=== PATIENT | male | born 1965 | race Caucasian/White ===

== ENCOUNTER 2017-04-12 16:57 | Inpatient (IN) | payer OTHER, SELFPAY ==
[2017-04-12] VITALS (9 sets, daily range): BP systolic 114–140; BP diastolic 80–93; PULSE 82–109; RESP 16–18; TEMP 36.8–37; O2SAT 94–97; BMI 27.9; BMI 27.2; BMI 27.3
--- NOTE | 2017-04-12 17:21 | CT_ITS ---
STUDY: CTA CHEST REASON FOR EXAM: Male, 51 years old. Shortness of breath. RADIATION DOSAGE (If Supplied By Facility): CTDIvol = ( 13.20 ) mGy, DLP = ( 594.82 ) mGycm TECHNIQUE: The examination was performed with the intravenous administration of 100ML ml of Isovue 370 contrast material. Post-processing of the angiographic images was performed, with multiplanar reformation and 3D reconstruction. Individualized dose optimization techniques were used for this CT. COMPARISON: None. FINDINGS: There are filling defects noted within segmental pulmonary arteries throughout the right lung consistent with pulmonary emboli. There is a embolus noted within a segmental pulmonary artery extending into the left upper lobe as well. Normal thoracic aorta and visualized great vessels. There is no demonstrated aortic dissection. Normal heart and pericardium. Normal mediastinum. Normal hilar regions. Normal visualized trachea and bronchi. There is minimal dependent consolidation within the right lower lobe. There is associated atelectasis within the lower lobes. Normal chest wall structures. Normal osseous structures. Normal visualized upper abdomen. CT/CTA Chest W/WO Contrast IMPRESSION: Bilateral pulmonary emboli, more pronounced on the right. Dependent consolidation within the right lower lobe associated with minimal atelectasis within the lower lobes. Electronically Signed: Sandy Styles MD at 19:09 EST Tel , Service support ,
--- NOTE | 2017-04-12 17:32 | ED.DCSUM_ITS ---
- ER Visit Summary Date of Service: 04/12/17 Chief Complaint: Abnormal CT scan History of Present Illness: The patient is a 51 M who presents today for follow- up from an abnormal CT scan yesterday. 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 He had a follow-up CAT scan yesterday to check the progression of this disease. The upper slices of the film question the PE with a wedge infarct. He was directed to come here today. Patient denies any symptoms including chest pain, shortness of breath or abdominal pain. Physical Examination: Vital signs reviewed. HEENT exam unremarkable. Heart is regular rate and rhythm without murmurs. Lungs are clear to auscultation. Abdomen is soft and nontender. Extremities reveal no edema. Skin exam normal. Neurologic exam normal. Test Results: Laboratory studies normal except for glucose of 24. CTA of the chest reveals bilateral PEs Emergency Department Course and Treatment: Patient remained comfortable without symptoms in the ER he was started on a heparin drip Treatment Plan: I discussed case with Dr. Medrano who recommended admission and heparin drip. Additional history was obtained from the patient and he states he had a DVT back in January but he was only placed on a short course of Xarelto that he finished in February. Patient was placed on a heparin drip. This will be stopped to obtain a hypercoagulability panel. Discussed the case with hospitalist for admission Disposition: Admit Impression: Bilateral pulmonary embolism This note was generated with [employer] dictation software. It may contain incorrect words, spelling, and punctuation that were not noted in review of the chart prior to signing ED Disposition - Plan for ED Patient: Chief Complaint: General Illness
[2017-04-12 17:35] LABS: Differential Indicated MANUAL DIFF; Hematocrit 42.2 % (40-54); Hemoglobin 14.4 g/dl (13.0-16.5); Mean Corp Hgb Conc 34.1 g/gl (32-36); Mean Corpuscular Volume 84.9 fL (80-94); Mean Platelet Vol. 9.5 fl (6.2-12.0); POSITIVE COUNT YES; POSITIVE DIFFERENTIAL YES; POSITIVE MORPHOLOGY YES; Platelet Count 172 K/mm3 (150-450); RBC Distribution Width CV 15.2 % (11.6-14.6); RBC Distribution Width SD 46.6 fl (35.1-43.9); Red Blood Count 4.97 M/mm3 (4.6-6.2); White Blood Count 8.1 K/mm3 (4.4-11.0)
[2017-04-12 17:45] LABS: Anion Gap 8 (5-15); BUN 12 mg/dL (7-18); BUN/Creat Ratio 12.6 RATIO (10-20); Calcium,Total 8.6 mg/dL (8.5-10.1); Chloride 101 mmol/L (98-107); Creatinine, Serum 0.95 mg/dL (0.70-1.30); EST Glomerular Filtration Rate 88 mL/min (>60); Est Glom Filt Rate - Afr Amer 106 mL/min (>60); Estimated Creatinine Clearance 92.85 ml/min; Glucose 124 mg/dL (70-110); Potassium 3.8 mmol/L (3.5-5.1); Sodium Level 139 mmol/L (136-145)
[2017-04-12 18:04] LABS: Lymphocyte 4 % (19-41); Monocyte 9 % (0-10); Neutrophil-Band 1 % (0-5); Neutrophil-Segmented 86 % (47-70); Total Cells Counted 100 (MANUAL DIFF)
[2017-04-12 18:05] LABS: Reactive Lymphocyte RARE
[2017-04-12 18:06] LABS: Absolute Lymphocyte Count 0.32 X10^3/ul (0.83-4.51)
[2017-04-12 20:33] LABS: Partial Thromboplast Time 24.7 Seconds (24.1-36.2)
[2017-04-12] MEDS: Heparin Injection 5,000 UNITS/ML Syringe 6000 UNITS IV (20:39)
[2017-04-12] MEDS: HEPARIN/D5w 25,000 UNITS 25,000 UNITS/250 ML IV.SOLN. 12 UNITS IV ×2 (20:40→23:22)
[2017-04-12 20:44] LABS: Prothrombin Time (Protime)PT. 12.6 SECONDS (11.7-14.9)
--- NOTE | 2017-04-12 20:52 | HP.PCM_ITS ---
Problem List (1) Sclerosing mesenteritis Status: Chronic (2) HTN (hypertension) Status: Chronic Qualifiers: Hypertension type: essential hypertension Qualified Code(s): I10 - Essential (primary) hypertension (3) HLD (hyperlipidemia) Status: Chronic Qualifiers: Hyperlipidemia type: unspecified Qualified Code(s): E78.5 - Hyperlipidemia , unspecified (4) Overweight (BMI 25.0-29.9) Status: Chronic (5) GERD (gastroesophageal reflux disease) Status: Chronic Qualifiers: Esophagitis presence: esophagitis presence not specified Qualified Code(s) : K21.9 - Gastro-esophageal reflux disease without esophagitis (6) Bilateral pulmonary embolism Status: Acute History of Present Illness Date of Admission: 04/12/17 Chief Complaint: Incidental PE noted on current imaging for sclerosing mesenteritis, referred to ED per Dr. Dotson. The patient is a 51 y/o M w/ PMHx: Overweight, HTN, HLD, GERD, Sclerosing Mesenteritis s/p Mesenteric Bx per his reported, initially treated w/ Tamoxifen and Prednisone but following Tamoxifen initiation had provoked PE thus discontinued who presents to the [facility] ED on 04/12/17 with history of ongoing evaluation per Dr. Dotson for his Sclerosing Mesenteritis w/ recent CT Abd the day prior with incidentally noted concern for PE with following referral to the ED per Dr. Dotson for CTPA. The patient denied any recent prolonged travel, family or personal hypercoaguable history or recent interventions. Patient stopped xarelto regimen for his prior PE in 02/2017 of note. In the ED work-up included AF, HR 80-90s, BP 136/88, RR 18, 94% on RA, CBC w/ WBC 8.1, Hgb 14.4, Plts 172 without marked shift, normal coags, BMP unremarkable aside glucose 124 , CTPA w/ bilateral pulmonary emboli more pronounced on the right with dependent consolidation within the right lower lobe associated with minimal atelectasis within the lower lobes. In the ED patient initiated on heparin drip which was held upon admission per discussion with ED Physician to obtain hypercoaguable panel prior to restart. Past Medical History Past Medical History (Chronic Problems): Chronic Problems Sclerosing mesenteritis (Chronic) HTN (hypertension) (Chronic) HLD (hyperlipidemia) (Chronic) Overweight (BMI 25.0-29.9) (Chronic) GERD (gastroesophageal reflux disease) (Chronic) Allergies amoxicillin Allergy (Verified 08/30/16 16:51) Unknown tamoxifen Adverse Reaction (Verified 04/12/17 17:00) Other Home Medications: Ambulatory Orders Medication Instructions Recorded Ramipril [Altace] 10 mg PO DAILY 05/30/15 Simvastatin [Zocor] 20 mg PO QHS 05/30/15 PredniSONE [Prednisone] 20 mg PO DAILY@0800 08/30/16 Omeprazole [Prilosec] 20 mg PO DAILY 04/12/17 Surgical History: - - Cholecystectomy, Bx mesentery per patient report. Psychiatric History: No pertinent psych hx Lives: Spouse/ Significant Other Smoking Status: Never smoker Tobacco Use: Non-smoker Alcohol: None Drugs: None - *Family History Maternal History Items: Heart Disease, Hypertension, - - Denied family clotting disorder history. Paternal History Items: Heart Disease, Hypertension, - - Denied family clotting disorder history. Review of Systems Constitutional: Denies: Chills, Fever, Weight Change HEENT: Denies: Head Aches, Sinus Congestion, Sinus Drainage Cardiovascular: Denies: Chest Pain, Palpitations Respiratory: Denies: Cough, Shortness of breath at rest, Sputum production Gastrointestinal: Reports: Abdominal Pain, Dyspepsia, Nausea. Denies: Vomiting Genitourinary: Denies: Dysuria Musculoskeletal: Denies: Joint Pain, Joint Tenderness Skin: Denies: Rash, Wounds Neurological: Denies: Numbness, Tingling, Focal weakness Psychiatric: Denies: Anxiety, Depression, Homicidal Ideations, Suicidal Ideations Hematologic/ Lymphatic: Denies: Easy Bruising, Easy Bleeding VTE Information - Inpt Only VTE Present on Admission: No VTE Mechan Device Prophylaxis: SCD's VTE Pharm Prophylaxis ordered?: Yes Patient Problems: Active and Suspected Problems Bilateral pulmonary embolism (Acute) Subjective: Seated upright in the ED bed, NAD. Objective: Physical Examination: General: awake, alert, oriented x 3 and cooperative, seated upright in the ED bed in no apparent distress. Skin: normal color, turgor, no icterus, cyanosis. HEENT: AT/NC, EOMI, PERRLA, MMM, no carotid bruits or JVD noted. Lungs: CTA bilaterally, moderate effort, mild decrease BL bases, no rales, ronchi or wheezing. Heart: Regular rate and rhythm; no gallop, rub audible. Abdomen: soft, overweight, NTTP, ND, normal BS, no HSM. Extremities: no cyanosis, clubbing, or edema. Neurological: patient awake, alert, oriented x 3; cognitive function intact; pupils equally reactive to light and accomodation; cranial nerves II-XII grossly normal, moving all 4 extremities, no focal deficits, strength preserved. Psychiatric: affect appears normal, no acute evidence of depressive or anxiety feelings. - Physical Exam Vital Signs Temp Pulse Resp BP Pulse Ox 98.3 F 95 16 114/88 H 97 04/12/17 16:58 04/12/17 19:36 04/12/17 19:36 04/12/17 19:36 04/12/17 19:36 Oxygen Delivery Method Room Air Weight: 194 lb 10.691 oz Body Mass Index (BMI) 27.9 Laboratory Tests Past 24 Hrs 04/12/17 04/12/17 04/12/17 17:05 17:05 17:25 WBC 8.1 RBC 4.97 Hgb 14.4 Hct 42.2 MCV 84.9 MCH 29.0 MCHC 34.1 RDW 15.2 H RDW Differential 46.6 H Plt Count 172 MPV 9.5 Neut % (Auto) Not Reportable Absolute Neuts (auto) 7.0 Absolute Lymphs (auto) 0.32 L Total Counted 100 Neutrophils % (Manual) 86 H Band Neutrophils % 1 Lymphocytes % (Manual) 4 L Monocytes % (Manual) 9 Diff Path Review May foll Reactive Lymphocytes RARE PT 12.6 INR 1.0 APTT 24.7 Sodium Potassium Chloride Carbon Dioxide Anion Gap BUN Creatinine Estim Creat Clear Calc Est GFR (MDRD) Af Amer Est GFR (MDRD) Non-Af BUN/Creatinine Ratio Glucose Calcium 04/12/17 17:25 WBC RBC Hgb Hct MCV MCH MCHC RDW RDW Differential Plt Count MPV Neut % (Auto) Absolute Neuts (auto) Absolute Lymphs (auto) Total Counted Neutrophils % (Manual) Band Neutrophils % Lymphocytes % (Manual) Monocytes % (Manual) Diff Path Review Reactive Lymphocytes PT INR APTT Sodium 139 Potassium 3.8 Chloride 101 Carbon Dioxide 30.0 Anion Gap 8 BUN 12 Creatinine 0.95 Estim Creat Clear Calc 92.85 Est GFR (MDRD) Af Amer 106 Est GFR (MDRD) Non-Af 88 BUN/Creatinine Ratio 12.6 Glucose 124 H Calcium 8.6 Assessment/Plan Active and Suspected Problems Bilateral pulmonary embolism (Acute) The patient is a 51 y/o M w/ PMHx: Overweight, HTN, HLD, GERD, Sclerosing Mesenteritis s/p Mesenteric Bx per his reported, initially treated w/ Tamoxifen and Prednisone but following Tamoxifen initiation had provoked PE thus discontinued who presents to the [facility] ED on 04/12/17 with history of ongoing evaluation per Dr. Dotson for his Sclerosing Mesenteritis w/ recent CT Abd the day prior with incidentally noted concern for PE with following referral to the ED per Dr. Dotson for CTPA. (1) Asymptomatic, Incidental PE BL, History of PE Prior: EKG without acute findings, CTPA with bilateral pulmonary emboli more pronounced on the right with a dependent consolidation right lower lobe associated with minimal atelectasis within the lower lobes, CBC unremarkable, chemistry unremarkable. No family history of hypercoaguable state. Patient notes no recent travel. Will admit to PCU, maintain on cardiac telemetry. Will obtain ECHO, BNP, troponin, BL LE DVT US as incidental CT findings on other work-up and noted prior although treatment duration inappropriate. Will hold ED heparin drip x 2 hours and obtain hypercoaguable panel with following resumption of heparin drip per Dr. Dotson preference noted to ED physician upon presentation but in AM will need to assist affordability of oral options. (2) Sclerosing mesenteritis: Following w/ Dr. Dotson, maintained currently on prednisone 20 mg daily, no on tamoxifen, usually administered concurrently with steroid taper. (3) Hypertension: Continue home regimen including ACEI, PRN hydralazine. (4) Hyperlipidemia: Continue home statin regimen. (5) Hyperglycemia: Admission glucose mildly elevated, HgA1c pending. (6) GERD: Famotidine. (7) DVT Prophylaxis: SCDs, heparin drip per Dr. Dotson preference with initial hold for labs and then restart. Code Visit Inpatient E&M: 73099 Init Hosp L3
--- NOTE | 2017-04-12 21:13 | ED.RN ---
HEPARIN STOPPED PER REQUEST FROM DR. BRADEN. HEPARIN TO BE STOPPED FOR [address] BRADEN.
[2017-04-12 22:38] LABS: Hemoglobin A1c 5.9 % (4.2-6.3)
[2017-04-12 22:47] LABS: BNP,B-Type NATRIURETIC PEPTIDE 9.8 pg/mL (0-100)
[2017-04-13] VITALS (8 sets, daily range): BP systolic 117–126; BP diastolic 73–78; PULSE 83–122; RESP 16–18; TEMP 36.9–37.1; O2SAT 94–100
[2017-04-13] MEDS: Atorvastatin Calcium 10 MG Tablet PO (00:11)
[2017-04-13] MEDS: Famotidine 20 MG Tablet PO ×2 (00:11→10:05)
[2017-04-13 06:29] LABS: Hematocrit 40.6 % (40-54); Hemoglobin 13.8 g/dl (13.0-16.5); Mean Corpuscular Volume 85.3 fL (80-94); Mean Platelet Vol. 9.9 fl (6.2-12.0); Platelet Count 178 K/mm3 (150-450); RBC Distribution Width CV 15.3 % (11.6-14.6); RBC Distribution Width SD 47.3 fl (35.1-43.9); Red Blood Count 4.76 M/mm3 (4.6-6.2); White Blood Count 7.5 K/mm3 (4.4-11.0)
[2017-04-13 06:30] LABS: Scan Indicated on CBC? Y/N NO
[2017-04-13 06:49] LABS: Partial Thromboplast Time 64.3 Seconds (24.1-36.2)
[2017-04-13 07:33] LABS: Anion Gap 10 (5-15); BUN 10 mg/dL (7-18); BUN/Creat Ratio 12.6 RATIO (10-20); Calcium,Total 8.3 mg/dL (8.5-10.1); Chloride 104 mmol/L (98-107); EST Glomerular Filtration Rate 108 mL/min (>60); Est Glom Filt Rate - Afr Amer 131 mL/min (>60); Estimated Creatinine Clearance 110.26 ml/min; Glucose 84 mg/dL (70-110); Sodium Level 139 mmol/L (136-145)
[2017-04-13] MEDS: Ramipril 10 MG Capsule PO (10:06)
[2017-04-13 11:40] LABS: Partial Thromboplast Time 52.2 Seconds (24.1-36.2)
--- NOTE | 2017-04-13 12:54 | PCM.PROGNOTE ---
Subjective: Patient is a 51-year-old male with a past medical history of hypertension, hyperlipidemia, GERD and sclerosing mesenteritis who follows with Dr. Medrano as an outpatient. He was sent to the emergency room when an outpatient CT of the abdomen incidentally revealed bilateral pulmonary emboli. In the past he had been on tamoxifen for sclerosing mesenteritis however it was discontinued when the patient had a pulmonary embolus. He took Xarelto for a short time. DVT of the common femoral V diagnosed 02/17/17 and he stopped the Xarelto in February. He was started on a heparin drip in the ER and this once stopped for 2 hours and a hypercoagulable panel was drawn. He is afebrile. He is mildly tachycardic with a normal blood pressure. Pulse ox on room air is 96-98% and his respiratory rate is within normal limits. CBC was unremarkable. Hypercoagulable workup is pending. BMP is unremarkable. Hemoglobin A1c was 5.9. Troponin was less than 0.02. - Physical Exam General: Alert, Oriented x3, Cooperative, No apparent distress HEENT: Atraumatic, PERRLA, EOMI Oral: Moist Mucosa Neck: Supple Lungs: Clear to auscultation, Normal air movement Cardiovascular: Regular rate, Regular Rhythm, Normal S1, Normal S2 Abdomen: Bowel Sounds Present, Soft, Non Tender, Non-Distended Psych/Mental Status: Normal Affect, Appropriate Vital Signs Temp Pulse Resp BP Pulse Ox 98.4 F 97 16 126/78 H 96 04/13/17 08:50 04/13/17 11:55 04/13/17 08:50 04/13/17 08:50 04/13/17 08:50 Oxygen Delivery Method Room Air Weight: 190 lb 7.67 oz Body Mass Index (BMI) 27.2 Intake and Output for Last 24 Hours 04/11/17 04/12/17 04/13/17 23:59 23:59 23:59 Intake Total 583 / 583 Balance 583 / 583 Laboratory Tests Past 24 Hrs 04/12/17 04/12/17 04/12/17 22:25 23:00 23:00 WBC RBC Hgb Hct MCV MCH MCHC RDW RDW Differential Plt Count MPV APTT Dil Jameel Viper Venom Protein C Antigen Pending Functional Protein C Pending Prot C Funct Activity Pending Antithrombin III Ag Pending Func Antithrombin III Pending Factor V Leiden Mutat Pending Sodium Potassium Chloride Carbon Dioxide Anion Gap BUN Creatinine Estim Creat Clear Calc Est GFR (MDRD) Af Amer Est GFR (MDRD) Non-Af BUN/Creatinine Ratio Glucose Calcium Troponin I < 0.02 Beta-2-GPI IgG Ab Pending Beta-2-GPI IgA Ab Pending Beta-2-GPI IgM Ab Pending Anti-Cardiolipin IgG Ab Pending Anti-Cardiolipin IgM Ab Pending Factor II DNA Analysis Pending Miscellaneous Test Cancelled 04/12/17 04/13/17 04/13/17 23:00 05:35 05:35 WBC 7.5 RBC 4.76 Hgb 13.8 Hct 40.6 MCV 85.3 MCH 29.0 MCHC 34.0 RDW 15.3 H RDW Differential 47.3 H Plt Count 178 MPV 9.9 APTT Dil Jameel Viper Venom Pending Protein C Antigen Functional Protein C Prot C Funct Activity Antithrombin III Ag Func Antithrombin III Factor V Leiden Mutat Sodium 139 Potassium 4.0 Chloride 104 Carbon Dioxide 25.0 Anion Gap 10 BUN 10 Creatinine 0.80 Estim Creat Clear Calc 110.26 Est GFR (MDRD) Af Amer 131 Est GFR (MDRD) Non-Af 108 BUN/Creatinine Ratio 12.6 Glucose 84 Calcium 8.3 L Troponin I Beta-2-GPI IgG Ab Beta-2-GPI IgA Ab Beta-2-GPI IgM Ab Anti-Cardiolipin IgG Ab Anti-Cardiolipin IgM Ab Factor II DNA Analysis Miscellaneous Test 04/13/17 04/13/17 05:35 11:25 WBC RBC Hgb Hct MCV MCH MCHC RDW RDW Differential Plt Count MPV APTT 64.3 H 52.2 H Dil Jameel Viper Venom Protein C Antigen Functional Protein C Prot C Funct Activity Antithrombin III Ag Func Antithrombin III Factor V Leiden Mutat Sodium Potassium Chloride Carbon Dioxide Anion Gap BUN Creatinine Estim Creat Clear Calc Est GFR (MDRD) Af Amer Est GFR (MDRD) Non-Af BUN/Creatinine Ratio Glucose Calcium Troponin I Beta-2-GPI IgG Ab Beta-2-GPI IgA Ab Beta-2-GPI IgM Ab Anti-Cardiolipin IgG Ab Anti-Cardiolipin IgM Ab Factor II DNA Analysis Miscellaneous Test Assessment/Plan Impressions 1. hx of DVT and PE when on Tamoxifen 2. BL PE's at admission discovered [id number] on a CT of the abdomen 3. US of the LLE on 02/17/17 + for extensive DVT left common femoral vein and also had superficial thrombophlebitis at that time. 4. Suspected hypercoagulable disorder - very unusual for male to have DVT on Tamoixifen and then to still have [id number] DVT in the leg aafter almost 6 months of anticoagulation. Will DC home tonight on Xarelto with a 21 day loading dose. Follow up with PCP and Dr. Dotson post DC Hypercoagulable W/U in progress. May need lifelong anticoagulation. If he has a hypercoagulable disorder would get a consult with heme/onc
[2017-04-13 14:15] LABS: AST(SGOT) 21 U/L (15-37); Alanine Aminotransfer ALT/SGPT 86 U/L (12-78); Albumin, Serum 2.8 g/dL (3.4-5.0); Alkaline Phosphatase 73 U/L (45-117); Protein, Total 5.8 g/dL (6.4-8.2)
--- NOTE | 2017-04-13 17:30 | PCM.DC ---
- Discharge Diagnoses Current Active Problems: Current Active and Chronic Problems Sclerosing mesenteritis (Chronic) HTN (hypertension) (Chronic) HLD (hyperlipidemia) (Chronic) Overweight (BMI 25.0-29.9) (Chronic) GERD (gastroesophageal reflux disease) (Chronic) Bilateral pulmonary embolism (Acute) You will use the following diet at home:: Other - Resume previous diet Your food should be the consistency of: Regular Your liquids should be the consistency of: Regular/Thin Discharge Activity: Return to Normal Activity - you may fatigue a little more easily or get a little short of breath with exertion but you have no restrictions Call your doctor if you observe: Shortness of breath, Dizziness, Fainting spells, Swelling in the ankles, Chest pain Additional Instructions: The ultrasound of the left leg you had on 02/17/17 still showed extensive clot in the left leg. The Xarelto does not dissolve clots BUT, it prevents the clot from getting larger. You should have stayed on the Xarelto. Sometimes people have disorders that interfere with the clooting cascade and these are called hypercoagulable disorders. some hypercoagulable disorders are inherited. You had testing at [facility] [place] to see if you have a hypercoagulable disorder but, the results will not be back for 4-[address] Alicia can discuss the results with you at your next visit. Pending Tests on Discharge: none Allergies/Adverse Reactions: Allergies amoxicillin Allergy (Verified 08/30/16 16:51) Unknown tamoxifen Adverse Reaction (Verified 04/12/17 17:00) Other Medications to take at Discharge Ramipril [Altace] 10 mg PO DAILY 05/30/15 Simvastatin [Zocor] 20 mg PO QHS 05/30/15 PredniSONE [Prednisone] 20 mg PO DAILY@0800 08/30/16 Omeprazole [Prilosec] 20 mg PO DAILY 04/12/17 Rivaroxaban [Xarelto] 1 tab PO UD #51 tab 04/13/17 The following prescriptions were given: Rivaroxaban [Xarelto] 1 tab PO UD #51 tab Primary Care Physician: Linda Bautista MD [Primary Care Provider] - Please follow up with your Primary Care Physician in: 7-10 days Please Follow Up With: Bob Dotson MD When: as previously arranged
--- NOTE | 2017-04-13 17:41 | DCINST_ITS ---
- Discharge Diagnoses Current Active Problems: Current Active and Chronic Problems Sclerosing mesenteritis (Chronic) HTN (hypertension) (Chronic) HLD (hyperlipidemia) (Chronic) Overweight (BMI 25.0-29.9) (Chronic) GERD (gastroesophageal reflux disease) (Chronic) Bilateral pulmonary embolism (Acute) You will use the following diet at home:: Other - Resume previous diet Your food should be the consistency of: Regular Your liquids should be the consistency of: Regular/Thin Discharge Activity: Return to Normal Activity - you may fatigue a little more easily or get a little short of breath with exertion but you have no restrictions Call your doctor if you observe: Shortness of breath, Dizziness, Fainting spells , Swelling in the ankles, Chest pain Additional Instructions: The ultrasound of the left leg you had on 02/17/17 still showed extensive clot in the left leg. The Xarelto does not dissolve clots BUT, it prevents the clot from getting larger. You should have stayed on the Xarelto. Sometimes people have disorders that interfere with the clooting cascade and these are called hypercoagulable disorders. some hypercoagulable disorders are inherited. You had testing at [facility] to see if you have a hypercoagulable disorder but, the results will not be back for 4-[address] Alicia can discuss the results with you at your next visit. Pending Tests on Discharge: none Allergies/Adverse Reactions: Allergies amoxicillin Allergy (Verified 08/30/16 16:51) Unknown tamoxifen Adverse Reaction (Verified 04/12/17 17:00) Other Medications to take at Discharge Ramipril [Altace] 10 mg PO DAILY 05/30/15 Simvastatin [Zocor] 20 mg PO QHS 05/30/15 PredniSONE [Prednisone] 20 mg PO DAILY@0800 08/30/16 Omeprazole [Prilosec] 20 mg PO DAILY 04/12/17 Rivaroxaban [Xarelto] 1 tab PO UD #51 tab 04/13/17 The following prescriptions were given: Rivaroxaban [Xarelto] 1 tab PO UD #51 tab Primary Care Physician: Linda Bautista MD [Primary Care Provider] - Please follow up with your Primary Care Physician in: 7-10 days Please Follow Up With: Bob Dotson MD When: as previously arranged
--- NOTE | 2017-04-13 17:42 | DS.PCM_ITS ---
Discharge Date and Diagnosis Date of Admission: 04/12/17 Date of Discharge: 04/13/17 - Primary Discharge Diagnosis Active and Suspected Problems Bilateral pulmonary embolism (Acute) Suspected Hypercoagulable disorder - Secondary Discharge Diagnosis Chronic Problems Left leg DVT (Chronic) - present on US of the LLE on 02/17/17 after almost 6 months of anticoagulation Sclerosing mesenteritis (Chronic) HTN (hypertension) (Chronic) HLD (hyperlipidemia) (Chronic) Overweight (BMI 25.0-29.9) (Chronic) GERD (gastroesophageal reflux disease) (Chronic) Hospital Course and Treatment Imaging Results: Clinical Impression(s) from Imaging Studies Chest CTA 04/12/17 17:21 IMPRESSION: Bilateral pulmonary emboli, more pronounced on the right. Dependent consolidation within the right lower lobe associated with minimal atelectasis within the lower lobes. Electronically Signed: Sandy Styles MD at 19:09 EST Tel , Service support , none Operations: None Procedures: None Summary of Care Provided: Patient is a 51-year-old male with a past medical history of hypertension, hyperlipidemia, GERD, PE in August 2016 while on Tamoxifen and sclerosing mesenteritis who follows with Dr. Medrano as an outpatient. He was sent to the emergency room when an outpatient CT of the abdomen incidentally revealed bilateral pulmonary emboli, worse on the right. In the past he had been on tamoxifen for sclerosing mesenteritis however it was discontinued when the patient had a pulmonary embolus in August of 2016. A venous US at that time showed only superficial thrombophlebitis of the greater saphenous vein below the knee. DVT of the common femoral V was persistent on a US of the LLE done 02/17/17. He stopped the Xarelto in February of 2017 after 6 months. He was started on a heparin drip in the ER and this was stopped for 2 hours and a hypercoagulable panel was drawn. The heparin was restarted and he was transferred to PCU. He has been doing laps in the [place] and is asymptomatic. He denies any CP or SOB. Pulse ox on room air is ranged from 94% to 100%. Lab was unremarkable. He is not tachycardic and he has no edema of the legs. He was discharged home on a loading dose of Xarelto but, in retrospect I think he should be seen by hematology because if he took the Xarelto for 6 months and was compliant with the dosing he failed therapy and developed extensive clot, while on Xarelto, in the Left common femoral vein. The CT scan of the abdomen and pelvis that was done on 01/07/17 showed a mass in the mesentery and he was referred to Dr. Dotson and had a bx. There are no biopsy results in [facility]. Sclerosing Mesenteritis can be associated with underlying malignancy as a paraneoplastic S. I called the patient after he was discharged and left my cell phone # for him to call me and suggested he return to the ER to be started on Lovenox 1 mg/kg every 12 hours. I discussed with Dr. Mckeon who is the night hospitalist who will see him if he returns to the ER. Will contact Dr. Dotson who will be following up with this patient. This note was generated with [employer] dictation software. It may contain incorrect words, spelling, and punctuation that were not noted in checking the note before signing. Discharge Activity: Return to Normal Activity - you may fatigue a little more easily or get a little short of breath with exertion but you have no restrictions Call your doctor if you observe: Shortness of breath, Dizziness, Fainting spells , Swelling in the ankles, Chest pain Home Medications: Medications to take at Discharge Ramipril [Altace] 10 mg PO DAILY 05/30/15 Simvastatin [Zocor] 20 mg PO QHS 05/30/15 PredniSONE [Prednisone] 20 mg PO DAILY@0800 08/30/16 Omeprazole [Prilosec] 20 mg PO DAILY 04/12/17 Rivaroxaban [Xarelto] 1 tab PO UD #51 tab 04/13/17 Following Prescrptions Were Given to Patient: Rivaroxaban [Xarelto] 1 tab PO UD #51 tab Primary Care Physician: Linda Bautista MD [Primary Care Provider] - Please follow up with your Primary Care Physician in: 7-10 days Please Follow Up With: Bob Dotson MD When: as previously arranged Disposition: Home Minutes spent on discharge:: 45 Patient Condition:: Stable Meaningful Use Info Meaningful Use Diagnoses (Choose all that apply): VTE - VTE Anticoag overlap given w/in hospital stay or rx'd at dc?: No Pt receive overlap for 5 days?: No Reason overlap not ordered, prescribed, or given for 5 days: Treatment Not Indicated Code Visit Inpatient E&M: 55312 Disch Hosp
[2017-04-13] MEDS: Rivaroxaban 15 MG Tablet PO (18:38)
[2017-04-14 10:53] LABS: Pathologist Review Reviewed
[2017-04-18 16:09] LABS: Protein C Antigen 111 % (60-150); Protein C, Functional 153 % (73-180)
[2017-04-19 14:35] LABS: Anti-Cardiolipin Ab, IgG, Qn < 9 GPL U/mL (0-14); Anti-Cardiolipin Ab, IgM, Qn 11 MPL U/mL (0-12); Anti-Thrombin 3 AG, Immunol 121 % (72-124); Antithrombin 3 Function 138 % (75-135); Beta-2-Glycoprotein I IgA <9 (0-25); Beta-2-Glycoprotein I IgG <9 (0-20); Beta-2-Glycoprotein I IgM <9 (0-32)
== END 2017-04-13 18:50 | disposition home or self-care (01) | DRG 176 ==
LOC: ED 19:00 → PCU 21:29
PROVIDERS: Admitting Provider Family Medicine; Emergency Provider Emergency Medicine; Family Provider Internal Medicine; PCP Internal Medicine; Visit Provider Internal Medicine
DX: I26.99 Other pulmonary embolism without acute cor pulmonale (principal); K65.4 Sclerosing mesenteritis; Z86.718 Personal history of other venous thrombosis and embolism; I10 Essential (primary) hypertension; E78.5 Hyperlipidemia, unspecified; K21.9 Gastro-esophageal reflux disease without esophagitis; E66.3 Overweight; Z68.27 Body mass index [BMI] 27.0-27.9, adult; Z23 Encounter for immunization
CPT/HCPCS: 36415; 71275; 80048; 80076; 81240; 81241; 83036; 83880; 84484; 85025; 85027; 85300; 85301; 85302; 85303; 85610; 85613; 85730; 86146; 86147; 97802; 99284; Q9967; 90686; A4216

== ENCOUNTER → 2019-09-20 07:14 | Outpatient (CLI) | payer OTHER, SELFPAY ==
--- NOTE | 2019-09-20 07:24 | CT_ITS ---
STUDY: CT ABDOMEN AND PELVIS WITH CONTRAST REASON FOR EXAM: Male, 53 years old. 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 Oral and amp; IV Readi-CAT and amp; 100mL Isovue-300 was administered. Sagittal and coronal images were reconstructed. Individualized dose optimization techniques were used for this CT. COMPARISON: Comparison is made with prior examination dated December 25, 2016. FINDINGS: The visualized lung bases are unremarkable. The visualized portions of the heart are within normal limits. There is decreased attenuation of the liver consistent with steatosis. The patient is status post cholecystectomy. Normal spleen. Normal pancreas. Normal bilateral adrenal glands. Normal right kidney. Normal left kidney. Normal visualized stomach. Normal small intestine. Normal colon. The appendix is visualized and appears normal. Normal abdominal aorta. Normal inferior vena cava. The previously seen soft tissue density in the region of the mesentery has decreased in size. It presently measures 10.1 cm x 3.5 cm x 4.3 cm. It previously measured 13.4 cm x 5.6 cm. Normal urinary bladder. Mildly enlarged prostate with indentation of the bladder base. Normal abdominal wall. Normal osseous structures. CT/Abdomen/Pelvis WITH Contrast IMPRESSION: Interval decrease in size of the soft tissue mass in the root of the mesentery. Electronically Signed: Rick Wolfe, at 15:38 EDT , Service support ,
--- NOTE | 2019-09-20 09:55 | RAD_ITS ---
STUDY: X-RAY CHEST REASON FOR EXAM: Male, 53 years old. Follow-up desmoid tumor. TECHNIQUE: Single AP portable view of the chest. COMPARISON: CTA of the chest, April 12, 2017. Chest, March 06, 2011. FINDINGS: The lungs are clear and expanded. There is no demonstrated pleural abnormality. Normal size heart. Normal mediastinum and kelle. Normal visualized pulmonary arteries. Normal visualized aortic arch and descending thoracic aorta. Normal visualized thoracic spine. Normal visualized ribs, clavicles, and shoulders. There is linear metallic foreign body overlying the head of the right clavicle cannot be seen on the lateral film. This may represent artifact. There is no demonstrated abnormality of the visualized soft tissue structures of the upper abdomen. RAD/Chest PA and Lateral IMPRESSION: No acute cardiopulmonary disease. Electronically Signed: Richard Rojas DO at 23:04 EDT Tel [phone], Service support ,
== END ==
PROVIDERS: PCP Internal Medicine
DX: D48.1 Neoplasm of uncertain behavior of connective and other soft tissue (principal)
CPT/HCPCS: 71046; 74177; Q9967

== ENCOUNTER 2020-09-25 12:41 | Emergency (ER) | payer OTHER, SELFPAY ==
[2019-12-22 10:10] VITALS: BMI 27.2
[2020-09-25 12:42] VITALS: BP 137/81; PULSE 94; RESP 16; TEMP 36.8; O2SAT 97; BMI 30.8
--- NOTE | 2020-09-25 13:07 | EDS_ITS ---
HPI History of Present Illness Chief Complaint: Lower Extremity Injury Narrative Narrative: Patient presenting with left calf and thigh pain. Patient states he has a history of DVT in the past and is not currently anticoagulated. The pain has been worsening over the last few days. He does note some swelling and has concern for DVT. He denies chest pain, palpitations, shortness of breath. He states he feels otherwise well [facility] Medical History Chronic headaches Gout Hx of blood clots Hx of gallstones Hypercholesteremia Seasonal allergies Tumors Home Medications loratadine 10 mg tablet 10 mg PO DAILY 12/22/19 [History Last Taken Unknown] omega-3 fatty acids 1,000 mg capsule 1,000 mg PO DAILY 12/22/19 [History Last Taken Unknown] ramipril 10 mg capsule 10 mg PO DAILY #90 cap 06/21/20 [Rx Last Taken Unknown] simvastatin 20 mg tablet 20 mg PO QHS #90 tab 06/21/20 [Rx Last Taken Unknown] Allergy/AdvReac Type Severity Reaction Status Date / Time amoxicillin Allergy Unknown Verified 09/25/20 12:44 tamoxifen AdvReac Other Verified 09/25/20 12:44 Family History Other Colon cancer Heart disease Hypercholesteremia Hypertension Social History leisure activities: exercise Smoking Status: Never smoker alcohol intake: current details: 3x week substance use type: does not use ROS ROS ED Constitutional Constitutional ED: Denies chills or fever(s) Eyes Eyes: Denies blurry vision or change in vision ENT ENT ED: Denies rhinorrhea or sore throat Cardiovascular Cardiovascular: Denies chest pain, palpitations or racing heartbeat Respiratory/Chest Respiratory/Chest: Denies cough, dyspnea, dyspnea on exertion or sputum Musculoskeletal Musculoskeletal: Reports other Details: Left calf and thigh pain ; Denies back pain Integumentary Denies abscess or rash Neurologic Neurologic: Denies headache(s), paresthesias or weakness EXAM Physical Exam Const Vital Signs: 09/25/20 12:42 Temperature 98.3 F Temperature Source Temporal Pulse Rate 94 Respiratory Rate 16 Blood Pressure 137/81 H Blood Pressure Mean 99 Pulse Ox 97 Oxygen Delivery Method Room Air Positive well nourished General Appearance ED: NAD HEENT trauma and tenderness Eyes PERRL and EOMs intact bilaterally Resp normal respiratory effort and clear to auscultation bilaterally Extremity Extremity Narrative: Mild tenderness to palpation over the medial aspect of the left calf extending up into the left medial thigh. There is mild edema locally. There is no sign of cellulitic changes. Neuro oriented x3 Sensorium / Orientation: alert Psych mental status grossly normal Skin no rashes or lesions noted and no wounds MDM MDM MDM Narrative Medical decision making narrative: 54-year-old male presenting with left leg pain and swelling he is concerned for DVT. I did obtain an ultrasound of the left lower extremity and there is superficial thrombophlebitis without deep DVT. Patient is counseled on findings. He is given discharge instructions and return precautions. He stable at this time. Impression: 1. Superficial thrombophlebitis Discharge Plan Triage Chief Complaint: Lower Extremity Injury ED Provider: Frank Comer Dx/Rx/DC Orders Instructions: ED Thrombophlebitis, Superficial Prescriptions: No Action omega-3 fatty acids [Fish Oil Concentrate] 1,000 mg capsule 1,000 mg PO DAILY RF: 0 loratadine [Allergy Relief (loratadine)] 10 mg tablet 10 mg PO DAILY RF: 0 ramipril 10 mg capsule 10 mg PO DAILY Qty: 90 RF: 1 simvastatin 20 mg tablet 20 mg PO QHS Qty: 90 RF: 1 Primary Care Provider: Linda Bautista Referrals: Linda Bautista MD [Primary Care Provider] - Disposition Disposition: Home, Self Care
== END 2020-09-25 13:21 | disposition home or self-care (01) ==
LOC: ED 13:14
PROVIDERS: Emergency Provider Student in an Organized Health Care Education/Training Program; PCP Internal Medicine
DX: I80.9 Phlebitis and thrombophlebitis of unspecified site (principal); E78.00 Pure hypercholesterolemia, unspecified; Z79.899 Other long term (current) drug therapy
CPT/HCPCS: 93971; 99282

== ENCOUNTER → 2020-10-06 13:56 | Outpatient (CLI) | payer OTHER, SELFPAY ==
[2020-10-03 09:55] VITALS: BMI 30.8
--- NOTE | 2020-10-06 13:58 | VDLE_ITS ---
Reason For Study: Pain LLE, known SVT Procedure LEFT This is a venous duplex using B-mode, color CFV is compressible, spontaneous, phasic, flow and spectral Doppler. competent, and demonstrates normal Exam performed in department. augmentation. A preliminary report was called and/or faxed FV is compressible, spontaneous, phasic, to Shahrzad BARBOSA. competent and demonstrates normal augmentation. POP V is compressible, spontaneous, phasic, competent and demonstrates normal augmentation. T/P Trunk is compressible. PTV is compressible. LT PerV is compressible. GSV is dilated and noncompressible from the ankle to the groin. No extension into the deep system. No change from previous study. VL/Venous Duplex US, Unilateral Interpretation Summary Deep veins of the left lower extremity are patent and compressible segmentally. There is no evidence of left lower extremity deep vein thrombosis. Valvular competence appears intac t within the proximal deep venous system on the left . Acute superficial thrombophlebitis is noted in the left great saphenous vein from the ankle to the groin, without extension into the deep manjula ous system. There has been no change since a prior study on 09/25/2020. Ordering Physician: Shahrzad Vera Referring Physician: Linda Bautista Performed By: Jyoti Patterson, SILVANO, RVT
== END ==
PROVIDERS: PCP Internal Medicine; Referring Provider Physician Assistant; Visit Provider Physician Assistant
DX: I80.02 Phlebitis and thrombophlebitis of superficial vessels of left lower extremity (principal); I47.1 Supraventricular tachycardia
CPT/HCPCS: 93971

== ENCOUNTER → 2020-12-21 08:32 | Outpatient (CLI) | payer OTHER, SELFPAY ==
[2020-12-21 12:37] LABS: Absolute Neutrophil Count 3.6 X10^3/uL (2.0-7.7); Basophil# 0.03 X10^3/uL; Basophil% 0.6 % (0-1); Eosinophil# 0.15 X10^3/uL; Eosinophils% 2.8 % (0-5); Hematocrit 46.8 % (40-54); Lymphocyte % 18.9 % (19-41); Mean Corp Hgb Conc 34.2 g/dL (32-36); Mean Corpuscular Hgb 29.5 pg (27.0-32.0); Mean Corpuscular Volume 86.3 fL (80-94); Mean Platelet Vol. 11.2 fl (6.2-12.0); Monocyte# 0.54 X10^3/uL; Monocyte% 10.2 % (0-10); NRBC Flagged by Analyzer 0 % (0-5); Neutrophil # 3.55 X10^3/uL (2.7-7.7); Neutrophil % 66.9 % (47-70); Platelet Count 236 K/mm3 (150-450); RBC Distribution Width CV 12.2 % (11.6-14.6); RBC Distribution Width SD 38.3 fl (35.1-43.9); Red Blood Count 5.42 M/mm3 (4.6-6.2); White Blood Count 5.3 K/mm3 (4.4-11.0)
[2020-12-21 13:01] LABS: Hemoglobin A1c 5.2 % (3.8-5.6)
[2020-12-21 13:02] LABS: ALB/GLOB Ratio 1.1 RATIO (0.9-2.4); AST(SGOT) 22 U/L (15-37); Alanine Aminotransfer ALT/SGPT 33 U/L (16-61); Albumin, Serum 3.5 g/dL (3.2-5.0); Alkaline Phosphatase 78 U/L (45-117); Anion Gap 8 (5-15); BUN 13 mg/dL (7-18); BUN/Creat Ratio 13.1 RATIO (10-20); Calcium,Total 8.8 mg/dL (8.5-10.1); Chloride 104 mmol/L (98-107); Cholesterol 191 mg/dL (200); Creatinine, Serum 0.99 mg/dL (0.70-1.30); EST Glomerular Filtration Rate 83 mL/min (>60); Est Glom Filt Rate - Afr Amer 100 mL/min (>60); Globulin 3.3 g/dL (2.2-4.2); Glucose 89 mg/dL (74-106); High Density Lipoprotein 54 mg/dL; PSA,Total - Annual Screen 0.88 ng/mL (0.00-4.00); Potassium 4.2 mmol/L (3.5-5.1); Protein, Total 6.8 g/dL (6.4-8.2); Sodium Level 140 mmol/L (136-145); Thyroid Stim Hormone (TSH) 1.16 uIU/mL (0.358-3.74); Triglycerides 81 mg/dL; Very Low Density Lipoprotein 16 mg/dL (5-40)
== END ==
PROVIDERS: PCP Internal Medicine; Referring Provider Internal Medicine; Visit Provider Internal Medicine
DX: E55.9 Vitamin D deficiency, unspecified (principal); I10 Essential (primary) hypertension; E78.5 Hyperlipidemia, unspecified; E66.3 Overweight; Z12.5 Encounter for screening for malignant neoplasm of prostate; K65.4 Sclerosing mesenteritis; Z68.29 Body mass index [BMI] 29.0-29.9, adult
CPT/HCPCS: 36415; 80053; 80061; 82306; 83036; 84153; 84443; 85025; G0103

== ENCOUNTER → 2021-03-01 | Outpatient (CLI) | payer OTHER, SELFPAY | END | disposition home or self-care (01) | LOC: LABSPEC 13:08 | PROVIDERS: PCP Internal Medicine; Referring Provider Internal Medicine; Visit Provider Internal Medicine | DX: U07.1 COVID-19 (principal) | CPT/HCPCS: 87635; U0005; U0003 ==

== ENCOUNTER 2021-03-03 15:27 | Outpatient (CLI) | payer OTHER, SELFPAY ==
[2021-03-03 15:28] VITALS: BP 153/95; PULSE 82; RESP 16; TEMP 36.3; O2SAT 100; BMI 30.1
[2021-03-03] MEDS: 0.9% Saline Lock 10 ML Syringe IV (15:43)
--- NOTE | 2021-03-03 16:01 | NURSING ---
pt c/o of lower back pain just after infusion started. Infusion stopped for a few minutes. Pain resolved. Infusion restarted at 150cc/hr.
[2021-03-03 17:35] VITALS: BP 147/85; PULSE 68; RESP 16; TEMP 36.8; O2SAT 98
== END 2021-03-03 17:35 | disposition home or self-care (01) ==
LOC: MS3OUT 15:30 → MS3 15:30
PROVIDERS: PCP Internal Medicine; Visit Provider Nurse Practitioner Acute Care
DX: U07.1 COVID-19 (principal)
CPT/HCPCS: J7050; M0245; Q0245; A4216

== ENCOUNTER 2021-04-06 09:12 | Day surgery (SDC) | payer OTHER, SELFPAY ==
[2021-04-06 09:30] VITALS: BP 144/80; PULSE 94; RESP 18; TEMP 36.4; O2SAT 99
[2021-04-06] MEDS: Lactated Ringers 1,000 ML 15 ML IV (09:30)
--- NOTE | 2021-04-06 09:31 | HP.PCM_ITS ---
History and Physical Date of Admission: 04/06/21 Intake Visit Reasons: HEMORRHOIDS Chief Complaint: pain and blood in stool Allergies amoxicillin Allergy (Verified 04/03/21 07:29) Unknown tamoxifen Adverse Reaction (Verified 04/03/21 07:29) Other Medications omega-3 fatty acids 1,000 mg capsule 1,000 mg PO DAILY 12/22/19 [History Con firmed 04/03/21] aspirin 325 mg tablet 325 mg PO DAILY 10/03/20 [History Confirmed 04/03/21] ramipril 10 mg capsule 10 mg PO DAILY #90 cap 12/27/20 [Rx Confirmed 04/03/21] simvastatin 20 mg tablet 20 mg PO QHS #90 tab 12/27/20 [Rx Confirmed 04/03/21] ascorbic acid (vitamin C) 500 mg capsule mg PO 03/15/21 [History Confirmed 04/03/21] cholecalciferol (vitamin D3) 25 mcg (1,000 unit) capsule 25 mcg PO DAILY 03/15/21 [History Confirmed 04/03/21] loratadine 10 mg tablet 10 mg PO DAILY PRN 03/15/21 [History Confirmed 04/03/21] zinc 50 mg tablet 50 mg PO DAILY 03/15/21 [History Confirmed 04/03/21] PFSH Medical History Chronic headaches Gout Hx of blood clots Hx of gallstones Hypercholesteremia Seasonal allergies Tumors Surgical History S/P laparoscopic cholecystectomy Family History Brother Colon cancer Other Heart disease Hypercholesteremia Hypertension Social History leisure activities: exercise Smoking Status: Never smoker alcohol intake: current details: 3x week substance use type: does not use HPI HPI HPI: MELODY PELAYO, is a 55 M who presents to the office today for surgical consultation regarding possible anal fissure. The patient is referred by Dr. Linda Bautista written copy my surgical consult and recommendations will return to him. The patient is on omega-3 fatty acids and aspirin as anticoagulants. He is complaining of discomfort at his anus. By report he has experienced recent COVID-19. He required monoclonal antibody treatment. By report he has a history of anal fissures. He has had some infrequent rectal bleeding. By report after digital rectal exam there was bleeding noted. He thinks he had a colonoscopy 5 years ago. Patient thinks that the rectal bleeding started around the time of his having COVID. He has had a remote history of anal fissures but this was much more blood on this occasion. He has no real pain. He does note that his brother just had colon cancer. The patient has a history dating back to 2016 of having a desmoid tumor of the abdomen. He was seen at [facility] he has been seen at [facility] and he is currently being treated at the [facility] [place] [facility]. It is not felt to be surgically resectable. He was treated with tamoxifen and colchicine but did not tolerate it. The tamoxifen caused him to have DVT and he also had pulmonary embolism. He was treated on Xarelto for period of time. Now he is just on aspirin therapy. He developed COVID-19 mid February 2021. He did receive monoclonal antibody treatment. He did not require hospitalization. He states that his symptoms are rather mild. He was vaccinated. He denies any current abdominal pain. No increased abdominal distention or bloating. No nausea or vomiting. ROS General General: No weight change, appetite, fatigue, colon cancer, breast cancer or weakness HEENT HEENT: No difficulty swallowing, eye injury, eye surgery, swollen glands or hoarseness Endo Endocrine: No thyroid disease, diabetes mellitus, thyroid cancer, Hair loss, heat intolerance or cold intolerance Skin Skin: No rash or changing moles Breast Breast: No left breast lump, right breast lump, nipple discharge, breast pain, abnormal mammogram, abnormal US or breast enlargement Musc Musculoskeletal: No back problems, arthritis, rheumatoid arthritis, gout or joint pain Cardio Cardiovascular: Yes high blood pressure; No murmur, pacemaker, heart disease, atrial fibrillation, heart attack, heart stent, palpitations, shortness of breat with exertion or chest pain Psych Psychiatric: No depression, anxiety or hearing voices Resp Respiratory: No shortness of breath, No sleep apnea, No cough, No COPD, No asthma, No emphysema and No wheezing Gastro Gastrointestinal: No abdominal pain, No nausea or vomiting, No diarrhea, No constipation, Yes blood in stool, No acid reflux, Yes hemorrhoids, No ulcers, No gallbladder problem and No black,tarry stools John Hematologic: Yes blood thinners, Yes blood disorders, No bleeding, No anemia and Yes blood clots Neuro Neurologic: No system reviewed and no additional complaints, except as documented, No as per HPI, No abnormal gait, No abnormal hearing, No abnormal movements, No abnormal speech, No behavioral changes, No burning sensations, No confusion, No convulsions, No disequilibrium, No dizziness, No localized weakness, No frequent falls, No headache(s), No lack of coordination, No loss of vision, No memory loss, No numbness, No other visual disturbances, No radicular pain, No restless legs, No sensory deficit, No syncope, No tingling, No tremor(s), No weakness and No other Exam Const General: cooperative, healthy appearing, comfortable and no acute distress Nutritional Appearance: overweight Orientation: alert and awake [facility] Head: normal to inspection Eyes General: appearance normal, both eyes and all related structures Neck Neck: normal visual inspection Resp Effort & Inspection: normal respiratory effort Auscultation: clear to auscultation bilaterally Cardio Rate: regular rate Rhythm: regular rhythm GI Palpation: soft and no hepatosplenomegaly Auscultation: normal bowel sounds Musc Cervical Spine: normal cervical lordosis Skin General: no rashes or lesions noted Neuro General: patient alert and patient awake Extrem General: no calf tenderness Psych Appearance: grossly normal Assessment and Plan Assessment and Plan (1) Rectal bleeding: Status: Acute (2) History of anal fissures: Status: Acute (3) Internal hemorrhoids: Status: Acute (4) History of DVT (deep vein thrombosis): Status: Acute Plan - Dr. Rome Christian MD: Rectal bleeding which does not sound like hemorrhoids. History of abdominal desmoid tumor nonresectable. History of colon cancer in his brother. Most recent colonoscopy 2017. I recommended the patient a colonoscopy with possible biopsy or polypectomy as indicated. He is aware of technique, benefit, risk and alternatives. We will try to expedite his care. I recommend that we obtain his most recent CT imaging study of his abdomen from the [facility]. He has had an opportunity to ask and have questions answered. We will schedule and proceed as noted. He has not had recent laboratory however the degree of bleeding does not appear to be voluminous though it certainly seems to be more than when he remotely had documented anal fissures. If the amount of bleeding increases then I would recommend checking laboratory. Copy: Dr. Linda Christian M.D., F.A.C.S. I have re-examined the patient. There are no clinical changes since date of exam.
[2021-04-06 11:17] VITALS: BP 144/80; BP 86/63; PULSE 81; RESP 16; TEMP 36.2; O2SAT 99
[2021-04-06 11:20] VITALS: BP 144/80; BP 97/63; PULSE 79; RESP 16; O2SAT 98
--- NOTE | 2021-04-06 11:20 | OP.COLON_ITS ---
Patient Name: Rodrigo Collins Procedure Date: 04/06/2021 10:54 AM Date of : 1965 Age: 55 Procedure: Colonoscopy Indications: Rectal bleeding Providers: Rome Christian MD Medicines: See the Anesthesia note for documentation of the administered medications Patient Profile: Last Colonoscopy: date unknown. Complications: No immediate complications. Procedure: Pre-Anesthesia Assessment: - Prior to the procedure, a History and Physical was performed, and patient medications and allergies were reviewed. The patient's tolerance of previous anesthesia was also reviewed. The risks and benefits of the procedure and the sedation options and risks were discussed with the patient. All questions were answered, and informed consent was obtained. Prior Anticoagulants: The patient has taken no previous anticoagulant or antiplatelet agents. ASA Grade Assessment: II - A patient with mild systemic disease. After reviewing the risks and benefits, the patient was deemed in satisfactory condition to undergo the procedure. After I obtained informed consent, the scope was passed under direct vision. Throughout the procedure, the patient's blood pressure, pulse, and oxygen saturations were monitored continuously. The colonoscope was introduced through the anus and advanced to the cecum, identified by appendiceal orifice and ileocecal valve. The colonoscopy was performed without difficulty. The patient tolerated the procedure well. The quality of the bowel preparation was good. The ileocecal valve and the appendiceal orifice were photographed. Scope In: 10:58:15 AM Scope Withdrawal Time 0 hours 7 minutes 22 seconds Scope Out: 11:13:09 AM Total Procedure Duration Time 0 hours 14 minutes 54 seconds Findings: The digital rectal exam findings include non-thrombosed internal hemorrhoids, internal hemorrhoids that prolapse with straining, but spontaneously regress to the resting position (Grade II) and enlarged prostate. Multiple diverticula were found in the sigmoid colon and descending colon. The exam was otherwise without abnormality. Impression: - Non-thrombosed internal hemorrhoids, internal hemorrhoids that prolapse with straining, but spontaneously regress to the resting position (Grade II) and enlarged prostate found on digital rectal exam. - Diverticulosis in the sigmoid colon and in the descending colon. - The examination was otherwise normal. - No specimens collected. Recommendation: - Discharge patient to home. - Resume previous diet. - Continue present medications. - Repeat colonoscopy in 10 years for screening purposes. No active bleeding or definitive site for bleeding. Possible posterior fissure on palpation but not visualized and no current bleeding. Notify me if recurrent problems please. Procedure Code(s): --- Professional --- 32710, Colonoscopy, flexible; diagnostic, including collection of specimen(s) by brushing or washing, when performed (separate procedure) Diagnosis Code(s): --- Professional --- K64.1, Second degree hemorrhoids K62.5, Hemorrhage of anus and rectum N40.0, Benign prostatic hyperplasia without lower urinary tract symptoms K57.30, Diverticulosis of large intestine without perforation or abscess without bleeding CPT copyright 2017 [employer]. All rights reserved. The codes documented in this report are preliminary and upon due diligence coordinator review may be revised to meet current compliance requirements. Rome Christian MD 04/06/2021 11:19:34 AM This report has been signed electronically. Number of Addenda: 0 Note Initiated On: 04/06/2021 10:54 AM
--- NOTE | 2021-04-06 11:20 | OP.CCLET_ITS ---
04/06/2021 Linda Bautista [facility] [address] [place] [address] Re : Colonoscopy procedure for Rodrigo Collins Dear Dr. Bautista This procedure was performed on Tuesday, April 06, 2021. My impressions and recommendations are as follows: Impressions : - Non-thrombosed internal hemorrhoids, internal hemorrhoids that prolapse with straining, but spontaneously regress to the resting position (Grade II) and enlarged prostate found on digital rectal exam. - Diverticulosis in the sigmoid colon and in the descending colon. - The examination was otherwise normal. - No specimens collected. Recommendations : - Discharge patient to home. - Resume previous diet. - Continue present medications. - Repeat colonoscopy in 10 years for screening purposes. No active bleeding or definitive site for bleeding. Possible posterior fissure on palpation but not visualized and no current bleeding. Notify me if recurrent problems please. My findings are described in the full procedure note, which is enclosed. If I can be of further assistance, please feel free to contact me at Doctor phone number(s): Work: . Sincerely, Rome Christian MD 04/06/2021 11:19:34 AM This report has been signed electronically.
[2021-04-06 11:25] VITALS: BP 103/57; BP 144/80; PULSE 77; RESP 16; O2SAT 98
[2021-04-06 11:30] VITALS: BP 144/80; BP 94/57; PULSE 78; RESP 16; O2SAT 97
[2021-04-06 11:52] VITALS: BP 144/80
== END 2021-04-06 23:59 | disposition home or self-care (01) ==
LOC: EN 09:14 → AC 09:14
PROVIDERS: PCP Internal Medicine; Referring Provider Internal Medicine; Visit Provider Surgery
PROC: 0DJD8ZZ Inspection of Lower Intestinal Tract, Via Natural or Artificial Opening Endoscopic (ICD-10-PCS; CPT 45378; principal; 2021-04-06 10:10)
DX: K64.1 Second degree hemorrhoids (principal); K57.30 Diverticulosis of large intestine without perforation or abscess without bleeding; K62.5 Hemorrhage of anus and rectum; N40.0 Benign prostatic hyperplasia without lower urinary tract symptoms; I10 Essential (primary) hypertension; E78.00 Pure hypercholesterolemia, unspecified; D48.1 Neoplasm of uncertain behavior of connective and other soft tissue; Z79.82 Long term (current) use of aspirin; Z79.899 Other long term (current) drug therapy; Z87.19 Personal history of other diseases of the digestive system; Z86.16 Personal history of COVID-19; Z86.711 Personal history of pulmonary embolism; Z86.718 Personal history of other venous thrombosis and embolism; Z80.0 Family history of malignant neoplasm of digestive organs
CPT/HCPCS: 45378; J7120; J2405

== ENCOUNTER → 2021-11-12 | Outpatient (CLI) | payer OTHER, SELFPAY ==
[2021-11-12 07:15] LABS: Absolute Lymphocyte Count 1.27 X10^3/uL (0.83-4.51); Absolute Neutrophil Count 3.6 X10^3/uL (2.0-7.7); Basophil# 0.04 X10^3/uL; Basophil% 0.7 % (0-1); Eosinophil# 0.19 X10^3/uL; Eosinophils% 3.3 % (0-5); Hematocrit 45.7 % (40-54); Hemoglobin 15.6 g/dL (13.0-16.5); Lymphocyte # 1.27 X10^3/ul (0.83-4.51); Lymphocyte % 22.2 % (19-41); Mean Corp Hgb Conc 34.1 g/dL (32-36); Mean Corpuscular Hgb 29.3 pg (27.0-32.0); Mean Corpuscular Volume 85.9 fL (80-94); Mean Platelet Vol. 10.4 fl (6.2-12.0); Monocyte# 0.57 X10^3/uL; NRBC Flagged by Analyzer 0 % (0-5); Neutrophil % 63.1 % (47-70); Platelet Count 205 K/mm3 (150-450); RBC Distribution Width CV 12.2 % (11.6-14.6); RBC Distribution Width SD 38.1 fl (35.1-43.9); Red Blood Count 5.32 M/mm3 (4.6-6.2); White Blood Count 5.7 K/mm3 (4.4-11.0)
[2021-11-12 07:50] LABS: ALB/GLOB Ratio 1.1 RATIO (0.9-2.4); AST(SGOT) 23 U/L (15-37); Alanine Aminotransfer ALT/SGPT 40 U/L (16-61); Albumin, Serum 3.5 g/dL (3.2-5.0); Alkaline Phosphatase 79 U/L (45-117); Anion Gap 6 (5-15); BUN 18 mg/dL (7-18); BUN/Creat Ratio 19.2 RATIO (10-20); Chloride 105 mmol/L (98-107); Cholesterol 184 mg/dL (200); Creatinine, Serum 0.94 mg/dL (0.70-1.30); EST Glomerular Filtration Rate 88 mL/min (>60); Est Glom Filt Rate - Afr Amer 107 mL/min (>60); Globulin 3.2 g/dL (2.2-4.2); Glucose 96 mg/dL (74-106); High Density Lipoprotein 48 mg/dL; Potassium 4.2 mmol/L (3.5-5.1); Protein, Total 6.7 g/dL (6.4-8.2); Sodium Level 140 mmol/L (136-145); Triglycerides 114 mg/dL; Very Low Density Lipoprotein 23 mg/dL (5-40)
[2021-11-12 07:52] LABS: Hemoglobin A1c 5.3 % (3.8-5.6)
== END | disposition home or self-care (01) ==
LOC: LAB 06:54
PROVIDERS: PCP Internal Medicine; Referring Provider Internal Medicine; Visit Provider Internal Medicine
DX: Z00.00 Encounter for general adult medical examination without abnormal findings (principal); I10 Essential (primary) hypertension; E78.5 Hyperlipidemia, unspecified; E66.3 Overweight
CPT/HCPCS: 36415; 80053; 80061; 83036; 85025

== ENCOUNTER 2023-08-07 12:56 | Emergency (ER) | payer OTHER, SELFPAY ==
[2023-08-07 12:58] VITALS: BP 155/93; PULSE 106; RESP 16; TEMP 36; O2SAT 100; BMI 30.3
--- NOTE | 2023-08-07 13:40 | VDLE_ITS ---
Reason For Study: Left leg pain RIGHT LEFT CFV is compressible, spontaneous, phasic, GSV is partially compressible with bright competent and demonstrates normal intraluminal echoes consistent with Chronic augmentation. SVT. Procedure CFV is compressible, spontaneous, phasic, This is a venous duplex using B-mode, color competent, and demonstrates normal flow and spectral Doppler. augmentation. Exam performed portable in ED. FV is compressible, spontaneous, phasic, A preliminary report was called and/or faxed competent and demonstrates normal to ED. augmentation. POP V is compressible, spontaneous, phasic, competent and demonstrates normal augmentation. T/P Trunk is compressible. PTV is compressible. LT PerV is compressible. VL/Venous Duplex US, Unilateral Interpretation Summary There is no evidence of left lower extremity deep vein thrombosis. Mostly compr essible left great saphenous vein there are some bright intraluminal echoes consistent with chroni c superficial venous thrombosis. Normal flow patterns right common femoral vein Ordering Physician: Frank Comer Referring Physician: Linda Bautista M.D. Performed By: Isabella Uriostegui RVT
--- NOTE | 2023-08-07 13:40 | EDS_ITS ---
HPI History of Present Illness Chief Complaint: Other, Pain/Inj Narrative Narrative: 57-year-old male presenting with left leg pain in the left inguinal/groin region and proximal thigh. Patient states he was jumping up and down with his granddaughter last night and noticed that he had some pain in his lower abdomen. This morning woke up with some pain in his leg. He states when he walks it gets worse. Resting makes it better. Patient admits to a history of provoked DVT from being on tamoxifen. He also has a history of DVT/PE from traveling. Patient not on any blood thinners now. Patient does state he has a history of superficial thrombophlebitis as well. Denies chest pain or shortness of breath. [facility] Medical History Wears glasses Alcohol use Gout High cholesterol Pulmonary embolism DVT (deep venous thrombosis) Back pain History of GI bleed History of diverticulitis Non-smoker History of stress test Hypertension Tumors Hypercholesteremia Chronic headaches Gout Hx of gallstones Hx of blood clots Seasonal allergies Home Medications ?Medication ?Instructions ?Recorded ?Last Taken ?Type omega-3 fatty acids 1,000 mg 1,000 mg PO DAILY 12/22/19 Unknown History capsule (Fish Oil Concentrate) aspirin 325 mg tablet 325 mg PO DAILY 10/03/20 Unknown History ascorbic acid (vitamin C) 500 mg 500 mg PO DAILY 03/15/21 Unknown History capsule cholecalciferol (vitamin D3) 25 25 mcg PO DAILY 03/15/21 Unknown History mcg (1,000 unit) capsule loratadine 10 mg tablet (Allergy 10 mg PO DAILY PRN ALLERGIES 03/15/21 Unknown History Relief (loratadine)) zinc 50 mg tablet 50 mg PO DAILY 03/15/21 Unknown History ramipril 10 mg capsule 10 mg PO DAILY BP #90 caps 11/18/22 Unknown Rx simvastatin 20 mg tablet 20 mg PO QHS CHOLESTEROL #90 tabs 11/18/22 Unknown Rx Allergy/AdvReac Type Severity Reaction Status Date / Time amoxicillin Allergy Unknown Verified 08/07/23 12:57 tamoxifen AdvReac Other Verified 08/07/23 12:57 Family History Brother Colon cancer Other Heart disease Hypercholesteremia Hypertension Surgical History S/P laparoscopic cholecystectomy Social History leisure activities: exercise Smoking Status: Never smoker alcohol intake: current details: 3x week substance use type: does not use ROS ROS ED Constitutional Constitutional ED: Denies chills, fever(s) or sweats Eyes Eyes: Denies blurry vision or change in vision ENT ENT ED: Denies ear pain or sore throat Cardiovascular Cardiovascular: Denies chest pain, palpitations or racing heartbeat Respiratory/Chest Respiratory/Chest: Denies cough, dyspnea or sputum Gastrointestinal Gastrointestinal: Denies abdominal pain, constipation, diarrhea, nausea or vomiting Genitourinary Genitourinary ED: Denies dysuria, hematuria or urinary frequency Musculoskeletal Musculoskeletal: Reports other Details: Left leg pain ; Denies arthralgias, myalgias or neck pain Integumentary Denies abscess, Abrasions or rash Neurologic Neurologic: Denies headache(s), paresthesias or weakness Psychiatric Psychiatric: Denies anxiety, depression, suicidal ideation or suicidal thoughts Endocrine Endocrinology: Denies polydipsia or polyuria EXAM Physical Exam Const Vital Signs: 08/07/23 12:58 Temperature 96.8 F L Temperature Source Temporal Pulse Rate 106 H Respiratory Rate 16 Blood Pressure 155/93 H Blood Pressure Mean 113 Pulse Ox 100 Oxygen Delivery Method Room Air Positive well nourished General Appearance ED: NAD HEENT atraumatic Eyes PERRL and EOMs intact bilaterally Resp normal respiratory effort Cardio regular rhythm Rate: regular rate Extremity Extremity Narrative: Left thigh shows no evidence of bruising, swelling, edema, mass. No tenderness to palpation. Full range of motion. Minimal pain elicited with range of motion. Neuro oriented x3, CN's II-XII intact bilaterally and moves all extremities Motor Exam: strength 5/5 throughout MDM MDM MDM Narrative Medical decision making narrative: Patient presenting with left groin pain. It sounds as if he might of strained something last night when he was dancing with his granddaughter although he has significant history of DVT and PE. He is not having chest pain or shortness of breath. Will obtain a duplex of the left lower extremity. Duplex of the left lower extremity negative for DVT. Patient discharged stable condition. Impression: 1. Muscle strain Radiography Diagnostic Testing: Clinical Impression(s) from Imaging Studies Venous Doppler Study 08/07/23 13:40 Interpretation Summary There is no evidence of left lower extremity deep vein thrombosis. Mostly compressible left great saphenous vein there are some bright intraluminal echoes consistent with chronic superficial venous thrombosis. Normal flow patterns right common femoral vein Ordering Physician: Frank Comer Referring Physician: Linda Bautista M.D. Performed By: Isabella Uriostegui RVT Discharge Plan Triage Chief Complaint: Other, Pain/Inj ED Provider: Frank Comer Dx/Rx/DC Orders Instructions: ED Muscle Strain, Extremity Prescriptions: No Action omega-3 fatty acids [Fish Oil Concentrate] 1,000 mg capsule 1,000 mg PO DAILY loratadine [Allergy Relief (loratadine)] 10 mg tablet 10 mg PO DAILY PRN (Reason: ALLERGIES) aspirin 325 mg tablet 325 mg PO DAILY ascorbic acid (vitamin C) 500 mg capsule 500 mg PO DAILY cholecalciferol (vitamin D3) 25 mcg (1,000 unit) capsule 25 mcg PO DAILY zinc 50 mg tablet 50 mg PO DAILY ramipril 10 mg capsule 10 mg PO DAILY Qty: 90 3RF simvastatin 20 mg tablet 20 mg PO QHS Qty: 90 3RF Primary Care Provider: Linda Bautista Referrals: Linda Bautista MD [Primary Care Provider] - Print Language: Bengali Disposition Disposition: Home, Self Care Discharge Date/Time: 08/07/23 14:11
== END 2023-08-07 14:11 | disposition home or self-care (01) ==
PROVIDERS: Emergency Provider Student in an Organized Health Care Education/Training Program; PCP Internal Medicine; Visit Provider Student in an Organized Health Care Education/Training Program
DX: S76.212A Strain of adductor muscle, fascia and tendon of left thigh, initial encounter (principal); X50.1XXA Overexertion from prolonged static or awkward postures, initial encounter; Y93.41 Activity, dancing; Y99.8 Other external cause status; I10 Essential (primary) hypertension; E78.00 Pure hypercholesterolemia, unspecified; Z79.82 Long term (current) use of aspirin; Z79.899 Other long term (current) drug therapy; Z86.718 Personal history of other venous thrombosis and embolism
CPT/HCPCS: 93971; 99282

== ENCOUNTER → 2024-05-05 | Outpatient (CLI) | payer OTHER, SELFPAY ==
[2024-05-05 16:03] LABS: Absolute Lymphocyte Count 1.61 X10^3/uL (0.83-4.51); Absolute Neutrophil Count 7.4 X10^3/uL (2.0-7.7); Basophil# 0.07 X10^3/uL; Basophil% 0.7 % (0-1); Eosinophil# 0.17 X10^3/uL; Eosinophils% 1.7 % (0-5); Hemoglobin 16.3 g/dL (13.0-16.5); Lymphocyte # 1.61 X10^3/ul (0.83-4.51); Lymphocyte % 16.2 % (19-41); Mean Corp Hgb Conc 34.7 g/dL (32-36); Mean Corpuscular Hgb 29.2 pg (27.0-32.0); Mean Corpuscular Volume 84.2 fL (80-94); Mean Platelet Vol. 10.1 fl (6.2-12.0); NRBC Flagged by Analyzer 0 % (0-5); Neutrophil # 7.38 X10^3/uL (2.7-7.7); Neutrophil % 74.1 % (47-70); Platelet Count 279 K/mm3 (150-450); RBC Distribution Width CV 11.9 % (11.6-14.6); RBC Distribution Width SD 36.2 fl (35.1-43.9); Red Blood Count 5.58 M/mm3 (4.6-6.2)
[2024-05-05 16:17] LABS: D-Dimer Quantitative (DVT/PE) < 0.27 FEU/ug/m (0.27-0.49)
[2024-05-05 16:24] LABS: Vitamin D,25 Hydroxy 34.2 ng/mL
[2024-05-05 16:31] LABS: ALB/GLOB Ratio 1.1 RATIO (0.9-2.4); AST(SGOT) 22 U/L (15-37); Alanine Aminotransfer ALT/SGPT 41 U/L (16-61); Albumin, Serum 3.8 g/dL (3.2-5.0); Alkaline Phosphatase 99 U/L (45-117); Anion Gap 7 (5-15); BUN 12 mg/dL (7-18); BUN/Creat Ratio 12.8 RATIO (10-20); Calcium,Total 9.5 mg/dL (8.5-10.1); Chloride 103 mmol/L (98-107); Cholesterol 198 mg/dL (200); Creatinine, Serum 0.94 mg/dL (0.70-1.30); EST Glomerular Filtration Rate 87 mL/min (>60); Est Glom Filt Rate - Afr Amer 105 mL/min (>60); Globulin 3.4 g/dL (2.2-4.2); Glucose 100 mg/dL (74-106); High Density Lipoprotein 41 mg/dL; PSA,Total - Annual Screen 1.27 ng/mL (0.00-4.00); Protein, Total 7.2 g/dL (6.4-8.2); Sodium Level 136 mmol/L (136-145); Triglycerides 268 mg/dL; Very Low Density Lipoprotein 54 mg/dL (5-40)
== END | disposition home or self-care (01) ==
LOC: LAB 15:40
PROVIDERS: PCP Internal Medicine; Referring Provider Internal Medicine; Visit Provider Internal Medicine
DX: Z00.00 Encounter for general adult medical examination without abnormal findings (principal); R07.9 Chest pain, unspecified; E55.9 Vitamin D deficiency, unspecified; Z13.220 Encounter for screening for lipoid disorders
CPT/HCPCS: 36415; 80053; 80061; 82306; 84153; 84443; 85025; 85379; G0103